=== PATIENT | female | born 1990 | race Caucasian/White ===

== ENCOUNTER 2018-07-26 15:29 | Emergency (ER) | payer OTHER ==
[2018-07-26 15:35] VITALS: BMI 28.5
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
[2018-07-26 18:07] VITALS: BP 128/68; PULSE 75; TEMP 98.5
== END 2018-07-26 18:09 | disposition home or self-care (01) ==
LOC: JER 15:29
DX: O26.892 Other specified pregnancy related conditions, second trimester (principal); Z04.1 Encounter for examination and observation following transport accident; Z3A.22 22 weeks gestation of pregnancy
CPT/HCPCS: 99282-25